=== PATIENT | male | born 1960 | race Caucasian/White ===

== ENCOUNTER 2023-07-18 09:16 | Emergency (ER) | payer OTHER ==
[~2023-07-18] VITALS: Ht 162.6 cm; Wt 106.2 kg
[2023-07-18 10:01] LABS: Basophils # (auto) 0 10 ^3/uL (0-0.2); Basophils % (auto) 0.4 % (0.0-2.0); Eosinophils # (auto) 0.3 10 ^3/uL (0-0.8); Eosinophils % (auto) 4.1 % (0.0-7.0); Hemoglobin 14.8 g/dL (13.5-17.5); Lymphocytes # (auto) 1.5 10 ^3/uL (0.4-5.4); Mean Corpuscular Hemoglobin 29.6 pg (28.0-32.0); Mean Corpuscular Hgb Conc. 33.7 g/dL (32.0-36.0); Mean Corpuscular Volume 87.7 fL (80.0-100.0); Monocytes # (auto) 0.7 10 ^3/uL (0-1.3); Monocytes % (auto) 8.8 % (0.0-12.0); Neutrophils # (auto) 5.4 10 ^3/uL (1.6-8.6); Neutrophils % (auto) 67.7 % (37.0-80.0); Red Blood Cells 5.02 10^6/uL (4.5-5.90)
[2023-07-18 10:13] LABS: Rapid Strep A Screen-Throat Negative
[2023-07-18 10:15] LABS: Alanine Aminotransferase 10 U/L (7-40); Albumin 4.3 g/dL (3.2-4.8); Alkaline Phosphatase 110 U/L (46-116); Anion Gap 7 (5-15); Aspartate Aminotransferase 15 U/L (13-40); BUN/Creatinine Ratio 10.7 (10.0-20.0); Bilirubin, Total 0.9 mg/dL (0.2-1.0); Blood Urea Nitrogen 9 mg/dL (9-23); CRP High Sensitivity 0.54 mg/dL (<1.0); Calcium 9.5 mg/dL (8.5-10.1); Carbon Dioxide 26 mmol/L (20-30); Chloride 107 mmol/L (98-107); Glucose 158 mg/dL (74-106); Potassium 3.5 mmol/L (3.5-5.1); Sodium 140 mmol/L (136-145)
[2023-07-18] MEDS: diphenhdrAMINE HCL 50 MG/1 ML VL IV ONE (10:18)
[2023-07-18] MEDS: DexAMETHasone SOD PHOS 10MG/1ML VIAL INJ IV ONE (10:18)
[2023-07-18] MEDS: IOHEXOL 300 MG/ML 100ML BOTTLE IJ ONE (10:46)
[2023-07-18 10:51] LABS: Erythrocyte Sedimentation Rate 12 mm/hr (0-20)
[2023-07-18] MEDS: CLINDAMYCIN 600MG IV 50 ML IV ONE (11:45)
[2023-07-18] MEDS ORDERED: AMPICILLIN & SULBACTAM SODIUM 3 GM in SODIUM CHL 0.9% 100 ML IV SCH (11:45)
[2023-07-18] MEDS ORDERED: CLIN1CAP70 PO (12:08)
[2023-07-18] MEDS ORDERED: PRED20TA2 PO (12:08)
[2023-07-18 12:21] VITALS: PULSE 80; RESP 18; TEMP 98.8; O2SAT 99
[2023-07-18 12:58] VITALS: BP 167/85; PULSE 66; RESP 18; O2SAT 97
[2023-07-18 13:35] LABS: Urine Bacteria None Seen /hpf (None Seen)
[2023-07-18 13:50] LABS: Urine Blood Negative /uL (Negative); Urine Clarity Clear (Clear); Urine Color Light-Yellow (Yellow); Urine Protein, UAD 1+ (Negative); Urine Specific Gravity 1.019 (1.001-1.035); Urine Urobilinogen Normal (Negative); Urine WBC <1 /hpf (0 - 3)
== END 2023-07-18 13:01 | disposition home or self-care (01) ==
LOC: ER 09:16
DX: K11.20 Sialoadenitis, unspecified (principal); J01.00 Acute maxillary sinusitis, unspecified; E11.9 Type 2 diabetes mellitus without complications
CPT/HCPCS: 36415; 70491; 80053; 81001; 83605; 83615; 85025; 85652; 86141; 87040; 87070; 87880; 96365; 96375; 99285; J1100; J1200; Q9967